=== PATIENT | female | born 1965 | race Caucasian/White ===

== ENCOUNTER → 2022-03-16 | Day surgery (SDC) | payer MEDICAID, OTHER ==
[~2022-03-16] MED LIST: Glycopyrrolate 0.2 MG/ML 5 ML MDV ONE; Midazolam 1 MG/ML 2 ML SDV ONE; Propofol 200 MG/20 ML SDV ONE; fentaNYL 100 MCG/2 ML SDV ONE
[2022-03-16] MEDS: Lactated Ringers 1,000 ML IV SCH (09:30)
== END ==
LOC: JP.SDS 06:00
PROVIDERS: ATTEND Student in an Organized Health Care Education/Training Program
DX: Z12.11 Encounter for screening for malignant neoplasm of colon (principal); D12.5 Benign neoplasm of sigmoid colon; I10 Essential (primary) hypertension; E66.9 Obesity, unspecified; Z20.822 Contact with and (suspected) exposure to COVID-19
CPT/HCPCS: 45385; 88305; J2250; J2704; J3010; J3490; J7120